=== PATIENT | female | born 1945 | race Two or more races ===

== ENCOUNTER 2016-10-02 17:38 | Observation (INO) | payer MEDICARE, BC ==
[2016-10-02 18:30] LABS: ABSOLUTE NEUTROPHIL COUNT 7.8 K/mm3 (1.8-7.7); BASO % 0.2 % (0.2-1.0); EOS % 0.3 % (0.9-2.9); HEMATOCRIT 29.6 % (37.0-47.0); HEMOGLOBIN 9.8 gm/l (12.0-16.0); IMM NEUT # 0.1 K/mm3 (0-0.2); IMM NEUT% 0.8 % (0-1); LYMPH # 2.8 (1.0-4.8); LYMPH % 24.3 % (15-45); MEAN CORPUSCULAR HEMOGLOBIN 32.1 pg (27.0-31.0); MEAN CORPUSCULAR HGB CONC 33.1 g/dl (33.0-37.0); MEAN PLATELET VOLUME 8.9 fl (7.4-10.4); MONO # 0.8 (0.0-0.8); NEUT % 67.4 % (43-75); PLATELET COUNT 172 K/mm3 (130-400); RED CELL DISTRIBUTION WIDTH 14.1 % (11.5-14.5)
[2016-10-02 18:49] LABS: ALB/GLOB RATIO 0.9 (>1.0); ALBUMIN 3.1 gm/dL (3.5-5.7); CALCIUM 8.2 mg/dL (8.6-10.3)
[2016-10-02 19:39] LABS: SPECIFIC GRAVITY 1.015 (1.001-1.030); URINE BILIRUBIN NEGATIVE (NEGATIVE); URINE BLOOD NEGATIVE (NEGATIVE); URINE GLUCOSE (UA) 2+ (NEGATIVE); URINE LEUKOCYTE ESTERASE TRACE (NEGATIVE); URINE NITRITE NEGATIVE (NEGATIVE); URINE PROTEIN TRACE (NEGATIVE); URINE UROBILINOGEN 1 mg/dL (0-1 mg/dl)
[2016-10-02] MEDS ORDERED: IOPAMIDOL 300 (61%) 150 ML VIAL IV ONE (19:44)
[2016-10-02 19:45] LABS: URINE APPEARANCE HAZY; URINE COLOR AMBER
[2016-10-02 19:57] LABS: URINE BACTERIA 2+; URINE RBC 0 /hpf
[2016-10-02] MEDS ORDERED: BISACODYL 5 MG TABLET.EC PO PRN (20:46)
[2016-10-02] MEDS ORDERED: INSULIN ASPART (DOSE) 100 UNITS/1 ML SUB-Q PRN (20:46)
[2016-10-02] MEDS ORDERED: MAGNESIUM HYDROXIDE 30 ML UDCUP PO PRN (20:46)
[2016-10-02] MEDS ORDERED: SODIUM CHLORIDE 0.9% 100 ML IV PRN (20:46)
[2016-10-02] MEDS ORDERED: MENTHOL/CETYLPYRD 1 EACH LOZENGE PO PRN (20:46)
[2016-10-02] MEDS ORDERED: BISACODYL 10 MG SUP PR PRN (20:46)
[2016-10-02] MEDS ORDERED: BLISTEX LIPSTICK 1 EACH TP PRN (20:46)
[2016-10-02] MEDS ORDERED: TRAMADOL HCL 50 MG TABLET PO PRN (20:55)
[2016-10-02] MEDS ORDERED: ALBUTEROL SULFATE 200 PUFFS/INH INHALER IH PRN (20:55)
[2016-10-02] MEDS ORDERED: SODIUM CHLORIDE 0.9% 1,000 ML IV SCH (21:00)
[2016-10-02] MEDS ORDERED: INSULIN GLARGINE (DOSE) 100 UNITS/ML UNIT SUB-Q SCH (21:00)
[2016-10-02 21:02] VITALS: BMI 43.6
[2016-10-02] MEDS ORDERED: PUMP TUBING ONE (22:00)
[2016-10-02] MEDS: FLUTICASONE/SALMETEROL 250/50 14 PUFFS/DISK IH SCH (22:09)
[2016-10-02] MEDS: DOCUSATE SODIUM 100 MG CAPSULE PO SCH (22:09)
[2016-10-02] MEDS: PREGABALIN 75 MG CAP PO SCH (22:20)
[2016-10-02] MEDS: ISOSORBIDE MONONITRATE 30 MG TAB.SR PO SCH (22:20)
[2016-10-03] MEDS ORDERED: D5 1/2NS with 20 mEq KCL 1,000 ML IV SCH (01:00)
[2016-10-03 05:41] LABS: MEAN CELL VOLUME 96.4 fl (81.0-99.0); MEAN CORPUSCULAR HEMOGLOBIN 32.1 pg (27.0-31.0); MEAN CORPUSCULAR HGB CONC 33.3 g/dl (33.0-37.0); RED CELL DISTRIBUTION WIDTH 14.3 % (11.5-14.5)
[2016-10-03 06:17] LABS: ALB/GLOB RATIO 0.9 (>1.0); ALBUMIN 2.5 gm/dL (3.5-5.7); CALCIUM 7.2 mg/dL (8.6-10.3)
[2016-10-03] MEDS ORDERED: SODIUM CHLORIDE 0.9% 500 ML IV PRN ×2 (06:43→10:20)
--- NOTE | 2016-10-03 07:10 | HP ---
Rosaura Rivera [id number] DATE OF ADMISSION: 10/02/2016 CHIEF COMPLAINT: Hematemesis and melana. HISTORY OF PRESENT ILLNESS: The patient is a 71-year-old female visiting here from [place] who noted abdominal pain starting on Friday. She has not had any prior symptoms like this. She has had not had any previous endoscopy. She reports vomiting perhaps about 10 times and having some loose diarrheal stools about 10 times. The emesis tended to be black and the stools tended to be black. She does acknowledge that the emesis appeared to be looking like coffee grounds. She denies alcohol. She does take some Tylenol, but notes no regular use of ibuprofen although, may have had a few. Her last couple of stools have been clear, but her son brought her here to the emergency room due to her symptoms. PAST MEDICAL HISTORY: Is remarkable for sciatica. She has hypertension. She has dyslipidemia. She has gout. She has chronic obstructive pulmonary disease and has diabetes. She is also on isosorbide, but she is not aware of any particular cardiac diagnosis for what this is for. PAST SURGICAL HISTORY: Includes cholecystectomy , 2006 hip replacement, 2008 knee replacement although, she does not recall a previous history of endoscopy she might have had some similar symptoms back in 2012, but is not aware of any specific diagnosis or changes in her medicines. ALLERGIES: She has no known drug allergies. MEDICATIONS: 1. Lyrica 75 by mouth twice daily. 2. Isosorbide unspecified type 30 mg by mouth twice daily. 3. Losartan 50 mg by mouth daily. 4. Atorvastatin 20 mg daily. 5. Uloric 40 mg daily. 6. Tramadol 50 mg as needed sciatica. 7. Advair 250/50 one puff inhaled twice daily. 8. ProAir HFA inhaled as needed. 9. Glipizide ER 2.5 mg by mouth twice daily for diabetes. SOCIAL HISTORY: She is visiting from [place]. She came about August 27. She is not leaving until October 17. Her son lives in [place]. She is . She quit smoking in 2006. She denies alcohol. She is Caodaism. Hobbies: Generally she likes to go to the . She likes to travel and is visiting [place]. FAMILY HISTORY: Father at age 87 unspecified cause. Mom at 70 of heart troubles. She has five children. REVIEW OF SYSTEMS: Eyes have been okay. Ears okay. Nose is okay. Mouth is okay. She does have dentures. Neck has been okay. She has had some respiratory problems, but is doing fine and is at baseline right now. No heart complaints known. Stomach complaints as above. No breast complaints. No urinary complaints. Arms have been okay. Legs have been okay. Skin has been okay. No history of stroke or transient ischemic attack. She does not have a POLST form. PHYSICAL EXAMINATION: GENERAL: Nontoxic female lying on rney. Appears to be morbidly obese. VITAL SIGNS: Blood pressure 152/70, later rechecked is 126/48, pulse is 73, respirations 14, temperature 99.5. HEENT: Head is normocephalic, atraumatic. Eyes are unremarkable. Some arcus senilis noted. Ears are normal. Tympanic membranes are normal. Nose is unremarkable. Mouth has dentures which are somewhat loose fitting. NECK: Supple. No masses or thyromegaly appreciated. LUNGS: Clear to auscultation with good air movement bilaterally. HEART: Regular rate and rhythm without murmur. BREAST: Deferred. EXTREMITIES: Pulses are good in the hands. Legs without pitting edema. Ankles are unremarkable. Feet in good condition, no ulcerations or other changes noted. ABDOMEN: With well healed right upper quadrant scar from open cholecystectomy. Patient describes some discomfort on palpation across the epigastric area, but also in the right lower quadrant as well. There is no rebound, no guarding. Bowel sounds are normal. GENITOURINARY: Deferred. RECTAL: Previous stool testing per emergency room grossly positive hemoccult. NEURO: Patient is pleasant and appropriate. Cranial nerves are intact. Speech is clear. She has some difficulty with medical history, but otherwise appears to do well. LABORATORY: White count 11.6, hemoglobin 9.8, platelets 172. Sodium 131, potassium 4.2, chloride 98, CO2 25, BUN 29, creatinine 0.9, glucose 251, calcium 9.2. LFT's are normal. Troponin 0.01. Lipase 52. Urinalysis 2+ glucose, 0 red cells, 2-5 white cells, 5-10 epithelial cells, 2+ bacteria. ASSESSMENT AND PLAN: 1. Hematemesis with melanotic stools, consider upper gastrointestinal bleed due to gastritis ulcer disease or Tena Grijalva tear initiated by gastroenteritis. Planned treatment with IV Protonix. We will monitor hemoglobin and hematocrit and anticipate referral for upper endoscopy in the morning. 2. Diabetes mellitus type 2. Anticipate use of Lantus and sliding scale in place of her glipizide for tonight. 3. Hypertension. We will continue medications. 4. Code status is full. 5. Venous thrombosis prophylaxis, low risk. 6. Abdominal pain is certainly consistent with the gastritis, but the right lower quadrant discomfort appears typical, consider muscle strain from vomiting versus other causes and we will be checking a CT scan of the abdomen. 7. Mild acute blood loss anemia from gastrointestinal bleed. We will recheck hemoglobin and hematocrit in the morning. 8. Sciatica. We will continue her on pain medicines. 9. Chronic obstructive pulmonary disease. Continue her on her inhalers. 10. History of gout. We will continue her on her Uloric. JOB: [id number] CC: Dr. Gallagher in [facility], [place] code [address], phone number [phone]
--- NOTE | 2016-10-03 08:58 | CT ---
ABD/PELVIS W/ CON COMPARISON: None. HISTORY: Epigastric and right lower quadrant pain, hematemesis, and melena Technique: Intravenous injection 125 mL Isovue 300. Using a [employer] Aquilion [address] scanner, images were obtained from the diaphragm to the floor the pelvis. An automated dose reduction technique was used to minimize patient radiation dose. Dose information: CTDIvol (mGy): 28.00 DLP(mGycm): 1381.90 FINDINGS: Lung bases: Normal. Inferior mediastinum and heart: Normal. Liver: Multiple tiny cysts. Mild intrahepatic bile duct dilation. Gallbladder: Cholecystectomy. Bile ducts: Dilated up to 15 mm. No radiopaque filling defect. Pancreas: Atrophy. No edema or abnormal enhancement. Spleen: Normal. Adrenal glands: Normal. Kidneys: Bilateral atrophy. Multiple simple cysts. No hydronephrosis or calculus. Ureters: Normal Urinary bladder: Normal. Uterus and adnexa: Normal. Blood vessels: Atherosclerosis of the aorta and its branches in the abdomen and pelvis. No aneurysm. The stenosis. Lymph nodes: Normal Stomach: Normal Duodenum: Marked edema and mucosal enhancement of the entire duodenum. Inflammatory stranding in the surrounding fat. Small intestine: Normal Appendix: Normal Colon: Normal Abdominal wall and supporting musculature: Normal Bones: Right total hip arthroplasty. Osteoarthritis of the left hip. Advanced degenerative changes in the spine. No lytic or blastic lesions. IMPRESSION: 1. Duodenitis. No evidence of rupture. The adjacent pancreas is normal. 2. Dilated bile ducts, common bile duct up to 15 mm. No visible filling defect. Possibly secondary to cholecystectomy. 3. Multiple simple hepatic cysts. 4. Atrophy of the pancreas. 5. Atrophy of both kidneys with multiple simple cyst. 6. Atherosclerosis of the aorta and its branches in the abdomen and the pelvis. 7. Right total hip arthroplasty. Osteoarthritis of the left hip in the sacroiliac joints. Multilevel spondylosis of facet osteoarthritis with severe acquired spinal stenosis at L1-2, L2-3, and L3-4. Preliminary report by [facility] radiologist Miladys Hitchcock M.D. 10/02/2016 at 21:44
[2016-10-03] MEDS ORDERED: LOSARTAN POTASSIUM 50 MG TABLET PO SCH (09:00)
--- NOTE | 2016-10-03 09:15 | PDOC36 ---
Provider Note Note: GENERAL SURGERY CONSULT CC: abdominal pain, dark stools, coffee ground emesis HPI: 71yo F with three days of upper abdominal pain. She has had multiple episodes of emesis which she describes as dark colored but not frankly bloody. She has had some black stools over the past few days. The patient denies any recent F/C/CP/SOB, change in bladder fx, constipation, diarrhea, unintentional weight loss, easy bleeding/bruising, or other associated symptoms. REVIEW OF SYSTEMS CONSTITUTIONAL: As per HPI. EARS, NOSE, MOUTH, THROAT: ~No sneezing or runny nose CARDIOVASCULAR: ~As per HPI. RESPIRATORY: ~As per HPI. GASTROINTESTINAL: ~As per HPI. GENITOURINARY: ~As per HPI. NEUROLOGICAL: ~No history of seizures HEMATOLOGIC: ~As per HPI. MUSCULOSKELETAL: ~No change in strength. LYMPHATICS: ~No history of splenectomy. PSYCHIATRIC: ~No change in personality or affect PMH: HTN, HL, Sciatica, DM, COPD, PSH: open cholecystectomy, hip replacement, knee replacement Meds: Lyrica, Isosorbide, Losartan, Atorvastatin, Uloric, Tramadol, Advair, ProAir, Glipizide All: NKDA SH: Former smoker, denies EtOH FH: Father at 87 (unknown), mother at age 70 due to heart problems Physical Exam: General/Constitutional: Vitals documented above, comfortable in NAD Psych: A&O x 3, normal judgment and insight. Recent and remote memory intact. Mood and affect normal. Eyes: Pupils equal, no scleral icterus Ears, Nose, Mouth, Throat: gross hearing intact Neck: Supple Heart: RRR, no LE edema Lungs: Equal rise and fall of chest wall, non-labored breathing, no audible wheezes Neuro: Gross sensation intact Abdomen: Soft, obese, NT/ND, no guarding. Labs (Admission) CBC: 11.6/9.8/29.6/172 Chem: Na 131, Glucose 251, BUN 29, Cr 0.9, o/w normal LFTs: Albumin 3.1, o/w WNL Troponin: Negative UA: 2+ glucose, o/w normal Labs (Today) CBC: 9.8/8.0/24.0/144 Chem: Na 133, Cr 0.9, glucose 183, o/w normal LFTs: Albumin 2.5, o/w WNL CT A/P (10/02/16): Severe inflammatory changes of the duodenum with wall thickening and surrounding fat stranding. Mild free fluid tracking inferiorly along the mesentery. This may represent intrinsic duodenitis vs. less likely pancreatitis. A/P: 70yo F with MMP and severe duodenitis with likely bleeding duodenal ulcer. I had initially planned to perform an upper endoscopy on her. However, given her comorbidities, worsening anemia, and severe inflammation on CT scan, I recommend that she should be transferred to a facility with an interventional tape controlled machine stitcher given her increased need for an advanced endoscopic procedure (clip, heater probe, injection). Sawyer Johnson MD Staff General Surgeon
[2016-10-03] MEDS: FLUTICASONE/SALMETEROL 250/50 14 PUFFS/DISK IH SCH ×2 (09:35→20:49)
[2016-10-03] MEDS: ISOSORBIDE MONONITRATE 30 MG TAB.SR PO SCH ×2 (09:36→20:43)
[2016-10-03] MEDS: FEBUXOSTAT 40 MG TABLET PO SCH (09:36)
[2016-10-03] MEDS: PREGABALIN 75 MG CAP PO SCH ×3 (09:36→20:43)
--- NOTE | 2016-10-03 09:59 | PDOC43 ---
- Subjective Chief Complaint: GI bleed Patient reports feeling a bit better today. Abdominal discomfort seems improved. No further vomiting, diarrhea. - Objective Vital Signs Temperature 98.2 F 10/03/16 07:05 Pulse Rate 80 10/03/16 07:05 Respiratory Rate 17 10/03/16 07:05 Blood Pressure 94/53 10/03/16 07:05 O2 Saturation by Pulse Oximetry 95 10/03/16 07:05 Oxygen Delivery Method Room Air Oxygen Flow Rate 0 Vital Signs Last 12 Hours Temp Pulse Resp BP Pulse Ox 10/03/16 07:05 98.2 F 80 17 94/53 95 10/03/16 03:50 98.1 F 79 18 107/55 94 10/03/16 01:49 16 10/02/16 23:45 98.1 F 76 16 95/54 95 Intake and Output 10/01/16 10/02/16 10/03/16 23:59 23:59 23:59 Intake Total 1203 Output Total 550 Balance 653 General: Alert, Cooperative HEENT: Atraumatic Lungs: Normal Air Movement, No Clear to Auscultation Bilaterally (sl wheeze noted) Cardiovascular: Regular Rate and Rhythm Abdomen: Soft, Normal Bowel Sounds, Non-Distended, Other (no tenderness) Extremities: No Edema Skin: Normal Color Neurological: Normal Speech Psych/Mental Status: Normal Affect Laboratory 10/03/16 05:15 10/03/16 05:15 10/03/16 10/03/16 10/03/16 05:52 05:15 00:09 RBC 2.49 L MCH 32.1 H POC Capillary Glucose 189 H 161 H Calcium 7.2 L Total Protein 5.2 L Albumin 2.5 L Albumin/Globulin Ratio 0.9 L 10/02/16 21:09 RBC MCH POC Capillary Glucose 204 H Calcium Total Protein Albumin Albumin/Globulin Ratio Current Medications: Current meds reviewed in EMR. Active Medications Albuterol Sulfate (Ventolin Hfa Mdi) 0 puffs IH Q4H PRN PRN Reason: Wheezing or Dyspnea Benzocaine/Menthol (Cepacol) 1 each PO PRN PRN PRN Reason: Sore Throat Bisacodyl (Dulcolax) 10 mg [place] DAILY PRN PRN Reason: Constipation Bisacodyl (Dulcolax) 5 mg PO DAILY PRN PRN Reason: Constipation Docusate Sodium (Colace) 100 mg PO BID [facility] Last Admin: 10/02/16 22:09 Dose: 100 mg Potassium Chloride/Dextrose/Sod Cl (D51/2ns With 20 Meq Kcl) 1,000 mls @ 75 mls /hr IV .[id number] [facility] Last Admin: 10/03/16 02:05 Dose: 75 mls/hr Sodium Chloride (Sodium Chloride 0.9%) 100 mls @ 25 mls/hr IV PRN PRN PRN Reason: Flush Sodium Chloride (Sodium Chloride 0.9%) 500 mls @ 25 mls/hr IV .Q20H PRN PRN Reason: Blood Transfusion Insulin Aspart (Novolog (Dose)) 0 units SUB-Q Q6HR PRN; Protocol PRN Reason: Blood Sugar > Insulin Glargine (Lantus (Dose)) 15 units SUB-Q Q24H [facility] Last Admin: 10/02/16 22:08 Dose: 15 units Isosorbide Mononitrate (Imdur) 30 mg PO BID [facility] Last Admin: 10/03/16 09:36 Dose: 30 mg Losartan Potassium (Cozaar) 50 mg PO DAILY [facility] Last Admin: 10/03/16 09:36 Dose: 50 mg Magnesium Hydroxide (Milk Of Magnesia) 30 ml PO DAILY PRN PRN Reason: Constipation Pantoprazole Sodium (Protonix) 40 mg IV Q24H [facility] Petrolatum/Paraffin/Mineral Oil (Blistex) 1 each TP PRN PRN PRN Reason: Dry and/or chapped lips Pregabalin (Lyrica) 75 mg PO TID [facility] Stop: 10/09/16 21:55 Last Admin: 10/03/16 09:36 Dose: 75 mg Fluticasone/Salmeterol (Advair 250/50 Diskus) 1 puff IH BID [facility] Last Admin: 10/03/16 09:35 Dose: 1 puff Sodium Chloride (Normal Saline 10ml Flush) 10 - 50 ml IV PRN PRN PRN Reason: IV Flush Last Admin: 10/02/16 22:12 Dose: 10 ml Sodium Chloride (Normal Saline 10ml Flush) 10 ml IV Q8HR [facility] Last Admin: 10/03/16 09:36 Dose: Not Given Tramadol HCl (Ultram) 50 mg PO Q6H PRN PRN Reason: Pain Last Admin: 10/03/16 00:18 Dose: 50 mg - Problems: Assessment/Plan (1) Acute blood loss anemia Status: Acute Assessment/Plan: Due to suspected duodenal bleed. Plan PRBC and recheck HH. (2) Abdominal pain Status: Acute Assessment/Plan: Patient reports feeling better. On IV Protonix, will continue. Consider clear liquids Spoke with Dr Beasley with [facility], would recommend PPI, blood, and monitor H/ H, BP. If unstable, would consider transfer, but at this time, would recommend continuing here, and consider for endoscopy (3) Hematemesis Qualifiers: Nausea presence: with nausea Qualifier Code: (K92.0) Hematemesis Status: Acute Assessment/Plan: Appears to be stable, no further emesis. Monitor HH, tx nausea if needed. (4) Melena Status: Acute Assessment/Plan: stable. No further melena so far. (5) COPD (chronic obstructive pulmonary disease) Status: Chronic Assessment/Plan: Stable. (6) Diabetes mellitus, type II Qualifiers: Diabetes mellitus complication status: without complication Status: Chronic Assessment/Plan: Stable, will adjust insulin (7) Sciatica Qualifiers: Laterality: unspecified laterality Qualifier Code: (M54.30) Sciatica, unspecified side Status: Chronic Assessment/Plan: continue meds, but not NSAIDs (reports she wasn't taking regularly previously). VTE Prophylaxis: Mechanical
[2016-10-03] MEDS: DOCUSATE SODIUM 100 MG CAPSULE PO SCH ×2 (10:04→20:43)
[2016-10-03] MEDS ORDERED: FUROSEMIDE 20 MG/2 ML VIAL IV ONE (10:20)
[2016-10-03] MEDS ORDERED: ACETAMINOPHEN 325 MG TABLET PO ONE (10:20)
[2016-10-03] MEDS ORDERED: DIPHENHYDRAMINE HCL 50 MG/1 ML VIAL IV ONE (10:20)
[2016-10-03] MEDS ORDERED: BLOOD Y PLUMSET W/CASSETTE ONE ×2 (10:42→14:05)
[2016-10-03] MEDS: INSULIN ASPART (DOSE) 100 UNITS/1 ML SUB-Q PRN ×2 (11:45→18:23)
[2016-10-03] MEDS ORDERED: FUROSEMIDE 20 MG/2 ML VIAL ONE (14:06)
[2016-10-03] MEDS ORDERED: INSULIN GLARGINE (DOSE) 100 UNITS/ML UNIT SUB-Q SCH (15:00)
[2016-10-03] MEDS ORDERED: PANTOPRAZOLE SODIUM 40 MG VIAL IV SCH (18:30)
[2016-10-03 19:45] LABS: HEMATOCRIT 34.1 % (37.0-47.0)
[2016-10-03] MEDS: PANTOPRAZOLE SODIUM 40 MG VIAL IV SCH (20:42)
[2016-10-03] MEDS: AMOXICILLIN TRIHYDRATE 500 MG CAPSULE PO SCH (20:43)
[2016-10-04 05:54] LABS: HEMATOCRIT 31.8 % (37.0-47.0); HEMOGLOBIN 10.6 gm/l (12.0-16.0)
[2016-10-04] MEDS: DOCUSATE SODIUM 100 MG CAPSULE PO SCH (09:22)
[2016-10-04] MEDS: FLUTICASONE/SALMETEROL 250/50 14 PUFFS/DISK IH SCH (09:22)
[2016-10-04] MEDS: ISOSORBIDE MONONITRATE 30 MG TAB.SR PO SCH (09:23)
[2016-10-04] MEDS: PREGABALIN 75 MG CAP PO SCH (09:23)
[2016-10-04] MEDS: AMOXICILLIN TRIHYDRATE 500 MG CAPSULE PO SCH (09:24)
[2016-10-04] MEDS: PANTOPRAZOLE SODIUM 40 MG VIAL IV SCH (09:24)
[2016-10-04] MEDS: FEBUXOSTAT 40 MG TABLET PO SCH (09:24)
--- NOTE | 2016-10-04 09:53 | PDOC43 ---
- Subjective Chief Complaint: GI bleed Patient reported to be eager to go home, tolerated PO intake well. Pt reports not feeling short of breath, feeling much better today. No c/o, would rather go home to [place] to have endoscopy. - Objective Vital Signs Temperature 98.1 F 10/04/16 08:00 Pulse Rate 69 10/04/16 08:00 Respiratory Rate 16 10/04/16 08:00 Blood Pressure 111/57 10/04/16 08:00 O2 Saturation by Pulse Oximetry 94 10/04/16 08:00 Oxygen Delivery Method Room Air Oxygen Flow Rate 0 Vital Signs Last 12 Hours Temp Pulse Resp BP Pulse Ox 10/04/16 08:00 98.1 F 69 16 111/57 94 10/04/16 07:33 16 10/04/16 03:58 98.1 F 73 16 104/60 91 10/03/16 23:59 97.6 F 72 16 115/61 94 Intake and Output 10/02/16 10/03/16 10/04/16 23:59 23:59 23:59 Intake Total 2670 525 Output Total 1650 1180 Balance 1020 -655 General: Alert, Cooperative, No Acute Distress (Looks to be feeling very good.) HEENT: Atraumatic Lungs: Clear to Auscultation Bilaterally, Normal Air Movement Abdomen: Soft, Normal Bowel Sounds, Non-Distended, No Tenderness Extremities: No Edema Skin: Normal Color Neurological: Normal Speech Psych/Mental Status: Normal Affect (appears to be feeling very good, upbeat), Normal Mood, Other Laboratory 10/04/16 05:30 10/03/16 05:15 10/04/16 10/03/16 10/03/16 05:50 20:41 18:15 POC Capillary Glucose 113 H 148 H 197 H 10/03/16 11:39 POC Capillary Glucose 192 H Laboratory Tests 10/02/16 10/03/16 10/03/16 18:16 05:15 19:35 Hgb 9.8 L 8.0 L 11.0 L D 10/04/16 05:30 Hgb 10.6 L Current Medications: Current meds reviewed in EMR. Active Medications Albuterol Sulfate (Ventolin Hfa Mdi) 0 puffs IH Q4H PRN PRN Reason: Wheezing or Dyspnea Amoxicillin (Trimox) 1,000 mg PO BID [facility] Last Admin: 10/03/16 20:43 Dose: 1,000 mg Benzocaine/Menthol (Cepacol) 1 each PO PRN PRN PRN Reason: Sore Throat Bisacodyl (Dulcolax) 10 mg [place] DAILY PRN PRN Reason: Constipation Bisacodyl (Dulcolax) 5 mg PO DAILY PRN PRN Reason: Constipation Docusate Sodium (Colace) 100 mg PO BID [facility] Last Admin: 10/03/16 20:43 Dose: 100 mg Potassium Chloride/Dextrose/Sod Cl (D51/2ns With 20 Meq Kcl) 1,000 mls @ 75 mls /hr IV .[id number] [facility] Last Admin: 10/03/16 02:05 Dose: 75 mls/hr Sodium Chloride (Sodium Chloride 0.9%) 100 mls @ 25 mls/hr IV PRN PRN PRN Reason: Flush Sodium Chloride (Sodium Chloride 0.9%) 500 mls @ 25 mls/hr IV .Q20H PRN PRN Reason: Blood Transfusion Sodium Chloride (Sodium Chloride 0.9%) 500 mls @ 25 mls/hr IV .Q20H PRN PRN Reason: Blood Transfusion Insulin Aspart (Novolog (Dose)) 0 units SUB-Q Q6HR PRN; Protocol PRN Reason: Blood Sugar > Last Admin: 10/03/16 18:23 Dose: 3 units Insulin Glargine (Lantus (Dose)) 20 units SUB-Q Q24H [facility] Last Admin: 10/03/16 15:15 Dose: 20 units Isosorbide Mononitrate (Imdur) 30 mg PO BID [facility] Last Admin: 10/03/16 20:43 Dose: 30 mg Losartan Potassium (Cozaar) 50 mg PO DAILY [facility] Last Admin: 10/03/16 09:36 Dose: 50 mg Magnesium Hydroxide (Milk Of Magnesia) 30 ml PO DAILY PRN PRN Reason: Constipation Pantoprazole Sodium (Protonix) 40 mg IV BID [facility] Last Admin: 10/03/16 20:42 Dose: 40 mg Petrolatum/Paraffin/Mineral Oil (Blistex) 1 each TP PRN PRN PRN Reason: Dry and/or chapped lips Pregabalin (Lyrica) 75 mg PO TID [facility] Stop: 10/09/16 21:55 Last Admin: 10/03/16 20:43 Dose: 75 mg Fluticasone/Salmeterol (Advair 250/50 Diskus) 1 puff IH BID [facility] Last Admin: 10/03/16 20:49 Dose: 1 puff Sodium Chloride (Normal Saline 10ml Flush) 10 - 50 ml IV PRN PRN PRN Reason: IV Flush Last Admin: 10/03/16 11:01 Dose: 20 ml Sodium Chloride (Normal Saline 10ml Flush) 10 ml IV Q8HR [facility] Last Admin: 10/04/16 04:05 Dose: Not Given Tramadol HCl (Ultram) 50 mg PO Q6H PRN PRN Reason: Pain Last Admin: 10/03/16 00:18 Dose: 50 mg - Problems: Assessment/Plan (1) Acute blood loss anemia Status: Acute Assessment/Plan: Due to suspected duodenal bleed, now resolved. Given 2 Units PRBC, HH appears good today. H pylori not back yet. Sx of anemia much improved, not dyspneic. (2) Abdominal pain Qualifiers: Abdominal location: epigastric Qualifier Code: (R10.13) Epigastric pain Status: Acute Assessment/Plan: Due to suspected dudodenitis vs duodenal ulcer vs other. Patient reports feeling much better. On IV Protonix, will continue, go to PO Protonix Advance diet Had spoken with Dr Beasley with [facility], he would recommend PPI, blood, and monitor H/H, BP. If unstable, would consider transfer, but at this time, would recommend continuing here, and consider for endoscopy as outpt (3) Hematemesis Qualifiers: Nausea presence: with nausea Qualifier Code: (K92.0) Hematemesis Status: Acute Assessment/Plan: Suspected due to duodenitis vs duodenal ulcer Appears to be stable, no further emesis. appears resolved (4) Melena Status: Acute Assessment/Plan: stable. No further melena so far. Anticipate outpt follow up (5) COPD (chronic obstructive pulmonary disease) Status: Chronic Assessment/Plan: Stable. (6) Diabetes mellitus, type II Qualifiers: Diabetes mellitus complication status: without complication Diabetes mellitus terminal worker insulin use: without terminal worker use Qualifier Code: (E11.9 ) Type 2 diabetes mellitus without complications Status: Chronic Assessment/Plan: Stable, doing well, anticipate return to PO (7) Sciatica Qualifiers: Laterality: unspecified laterality Qualifier Code: (M54.30) Sciatica, unspecified side Status: Chronic Assessment/Plan: continue meds, but not NSAIDs (reports she wasn't taking regularly previously). VTE Prophylaxis: Mechanical Disposition: Consider for DC to home today
[2016-10-04] MEDS ORDERED: FLUTICASONE/SALMETEROL 250/50 14 PUFFS/DISK IH SCH (10:45)
--- NOTE | 2016-10-04 11:58 | DS ---
Rosaura Rivera : 1945 DATE OF ADMISSION: 10/02/2016 DATE OF DISCHARGE: 10/04/2016 DISCHARGE DIAGNOSES: 1. Upper gastrointestinal bleed due to suspected duodenitis. 2. Acute blood loss anemia with transfusion of 2 units of packed red blood cells. 3. Diabetes mellitus type 2. 4. Hypertension. 5. History of sciatica, reported not on any antiinflammatories. 6. History of chronic obstructive pulmonary disease. 7. History of gout. REASON FOR ADMISSION: Patient is a 71-year-old female visiting from [place] who noted abdominal pain starting on Friday before admission. She has not had prior symptoms to this and she reported vomiting about 10 times and having some loose diarrheal stools about 10 times. The emesis appeared to be black and like coffee grounds and the loose stools appeared to be quite dark. These were obviously Heme positive in the emergency room and her labs on admission showed a white blood cells count of 11.6, hemoglobin 9.8. Her sodium 131, potassium 4.2, BUN 29, creatinine 0.9, glucose 251, calcium 8.2. Troponin 0.01. Lipase 52. Liver enzymes were normal. Urinalysis was unremarkable other than 2+ glucose. The patient was referred to the hospitalist service and started on Protonix. She was monitored and her hemoglobin dropped to 8.0 by the next morning, so she was transfused 2 units of packed red blood cells. Consultation with surgery was considered, but they indicated a preference to avoid endoscopy in the setting where further bleeding might be triggered without further interventional backup. Discussion carried out with [facility] as well and they recommended observing and if remaining hemodynamically stable consider for outpatient follow up endoscopy. The patient was also treated for H-pylori starting on amoxicillin initially. She tolerated the transfusion very well with a hemoglobin going to 11.0 by the evening of October 03 and it was 10.6 on October 04. She tolerated oral intake well and was very eager to be discharged. During her stay her glucose was managed with Lantus and sliding scale insulin and her sugars were down to 113 the morning of 10/04/2016. Her troponin remained normal and her H-pylori blood test is still pending. She is anticipated to be discharged to home in care of her son whom she is visiting and she will seek medical attention if having further bleeding or shortness of breath. DISCHARGE MEDICATIONS: 1. She will be on albuterol 1 to 2 puffs every 4 hours as needed. 2. Amoxicillin 1000 mg by mouth twice daily x4 more days. 3. Atorvastatin 20 mg daily. 4. Clarithromycin 500 mg by mouth twice daily starting 10/08/2016 for 5 days. 5. Uloric 40 mg by mouth daily. 6. Fluticasone Salmeterol 1 puff inhaled twice daily. 7. Glipizide 2.5 mg by mouth twice daily. 8. Isosorbide mononitrate 60 mg by mouth daily. 9. Losartan 50 mg by mouth daily. 10. Metronidazole 500 mg by mouth twice daily starting 10/08/2016 for five days as well. 11. Pantoprazole 40 mg by mouth twice daily. 12. Lyrica 75 mg by mouth three times daily. 13. Tramadol 50 mg by mouth every 6 hours as needed. 14. She indicates she is not taking any antiinflammatories, so we encouraged her to continue. She will avoid alcohol and she does not smoke. She is going to be set up for a appointment at the [facility] office before she returns to [place], but she may consider follow up in [place] for her endoscopy. JOB: [id number] CC: Dr. Gallagher in [facility] [place] [address] Phone number is [phone], voice number
[2016-10-04 13:12] VITALS: BP 103/53
== END 2016-10-04 13:55 | disposition home or self-care (01) ==
LOC: ED 17:38 → MS 19:43
PROVIDERS: ADMIT Family Medicine; ATTEND Family Medicine
PROC: 30233N1 Transfusion of Nonautologous Red Blood Cells into Peripheral Vein, Percutaneous Approach (ICD-10-PCS; principal; 2016-10-04)
DX: K29.81 Duodenitis with bleeding (principal); D62 Acute posthemorrhagic anemia; K92.0 Hematemesis; M54.30 Sciatica, unspecified side; I10 Essential (primary) hypertension; M10.9 Gout, unspecified; J44.9 Chronic obstructive pulmonary disease, unspecified; E11.9 Type 2 diabetes mellitus without complications; Z87.891 Personal history of nicotine dependence

== ENCOUNTER 2016-10-04 23:05 | Emergency (ER) | payer MEDICARE, BC ==
[2016-10-05] MEDS ORDERED: SUCRALFATE 1 G/10 ML DOSE ONE (01:05)
[2016-10-05] MEDS ORDERED: OXYCODONE/ACETAMINOPHEN 5/325 MG TABLET ONE (01:16)
[2016-10-05] MEDS ORDERED: PREDNISONE 20 MG TABLET ONE (01:16)
== END 2016-10-05 01:31 | disposition home or self-care (01) ==
LOC: ED 23:05
DX: M54.5 Low back pain (principal); I10 Essential (primary) hypertension
CPT/HCPCS: 99283 ×2; A9270 ×2; J7512